=== PATIENT | female | born 1995 | race Caucasian/White ===

== ENCOUNTER 2024-10-31 08:54 | Outpatient (CLI) | payer MEDICAID, SELFPAY ==
[2024-10-31 09:19] VITALS: PULSE 93; O2SAT 97
[2024-10-31 09:20] VITALS: BP 107/52; PULSE 83
[2024-10-31 09:28] VITALS: RESP 16; TEMP 37.8
[2024-10-31] MEDS: METOCLOPRAMIDE 10 MG TABLET PO (09:56)
[2024-10-31] MEDS: ACETAMINOPHEN 500 MG TABLET 1000 MG PO (09:56)
[2024-10-31 09:59] LABS: Hematocrit 31.9 % (33.0-51.0); Hemoglobin* 10.7 gm/dL (12.0-16.0); Mean Corpuscular HGB Conc 34 gm/dL (32-36); Mean Corpuscular Hemoglobin 31 pg (26-34); Mean Corpuscular Volume 92 fL (80-100); Red Blood Count 3.47 m/uL (4.00-5.20); White Blood Count* 8.40 K/uL (4.50-11.00)
[2024-10-31 10:02] LABS: Slide Review Reflex No
[2024-10-31 10:16] LABS: Alanine Aminotransferase* 23 U/L (4-35); Aspartate Amino Transferase* 28 U/L (12-35); Creatinine* 0.5 mg/dL (0.5-1.5); Estimated Glomerular Filt Rate 131 ml/min
[2024-10-31 11:12] VITALS: RESP 16; TEMP 36.7
[2024-10-31 12:04] VITALS: BP 107/51; PULSE 74
[2024-10-31 12:05] VITALS: PULSE 80; O2SAT 98
--- NOTE | 2024-10-31 12:44 | PC.OBNST ---
NST Note NST Note Start: 10/31/24 09:14 Freq: ONCE Status: Active Protocol: Document 10/31/24 09:14 BRM (Rec: 10/31/24 12:43 BR [id number]) NST Note 3 Para (# of births) 2 EDC 01/18/25 Gestational Age In 28 Weeks & 5 Days Weeks & Days Patient Presented Headache with Complaint(s) of Other Complaints Complaints of fever and headache Reactive Yes Appropriate for Yes Gestational Age BRIANA Whitfield RNC Date 10/31/24 Reactive Yes Appropriate for Yes Gestational Age BRIANA Summers RN Date 10/31/24 OB NST charge Yes Complete NST Note Yes via Write Note The provider's electronic signature indicates the NST is reactive/appropriate for gestational age. *Note to provider: If an addendum is required, open the patient's chart and click on the note under the Nurse/Allied Health tab.
== END 2024-10-31 12:05 | disposition home or self-care (01) ==
LOC: OB OUT 08:54 → OB 08:55
PROVIDERS: Family Medicine; PCP Family Medicine; Visit Provider Family Medicine
DX: O26.893 Other specified pregnancy related conditions, third trimester (principal); R51.9 Headache, unspecified; R50.9 Fever, unspecified; Z3A.28 28 weeks gestation of pregnancy
CPT/HCPCS: 36415; 59025; 82565; 84450; 84460; 85027; G0463; A9270

== ENCOUNTER 2025-01-14 15:59 | Inpatient (IN) | payer BC, SELFPAY ==
[2025-01-14] VITALS (8 sets, daily range): BP systolic 123–151; BP diastolic 72–80; PULSE 78–92; RESP 16; TEMP 36.6–36.7; O2SAT 98–99; BMI 32.5
[2025-01-14 17:28] LABS: Hematocrit* 32.7 % (33.0-51.0); Hemoglobin* 10.6 gm/dL (12.0-16.0); Immature Granulocytes Abs Auto 0.10 K/uL (0.00-0.30); Immature Granulocytes Pct Auto 0.9 %; Mean Corpuscular HGB Conc 32 gm/dL (32-36); Mean Corpuscular Hemoglobin 29 pg (26-34); Mean Corpuscular Volume 88 fL (80-100); RDW Coefficient of Variation % 13.5 % (11.5-15.5); Red Blood Count* 3.72 m/uL (4.00-5.20); White Blood Count* 10.83 K/uL (4.50-11.00)
--- NOTE | 2025-01-14 17:32 | PM.OBHPLI ---
OB - H&P: HPI Labor/Induction History of Present Illness Time Seen by Provider: 17:32 Date Seen: 01/14/25 Chief Complaint: The patient is a 29 year old 3 para 1001 at 39.3 weeks gestation by first trimester ultrasound (conceived immediately after removal of IUD), who presents for IOL. Chief complaint: IOL- HX of shoulder dystocia : 3 Para: 2 Narrative: Michelle Marie is a 29 year old female 3 para 2001 at 39.3 weeks gestation by first trimester ultrasound (conceived immediately after removal of IUD), who presents for IOL. Patient has history of 90 second shoulder dystocia with her first baby when induced at 41 weeks. She did well without dystocia in her 2nd when induced at 39 weeks and requests IOL for history of dystocia. Of note, this baby is measuring 36th percentile, abdominal circumference 50th percentile. Of note, this is a new FOB compared to other children. She has had epidural for pain management with other children. She contracted some over the weekend, otherwise feels well. Patient has history of anxiety, uses hydroxyzine PRN. had anemia in , on oral iron. Hemoglobin is 11.4. NIPT low risk, Girl History of Present Dating criteria: based on 1st trimester US only care: good care Ultrasounds: normal 1st trimester US and normal mid trimester US Medical complications: none Labs Blood type: A (+) positive Rubella: immune RPR/VDLR: nonreactive GBS status: negative HBsAG: negative Review of Systems Status of ROS: Reports: 10 or more systems reviewed and unremarkable except as noted in History and below Meds Home Medications and Allergies Home Medications ?Medication ?Instructions ?Recorded ?Confirmed ?Type hydroxyzine HCl 10 mg tablet 10 - 20 mg PO Q8H PRN anxiety 10/31/24 01/14/25 History Held on 01/14/25. Instructions: patient ran out vit no.95-ferrous 1 tab PO DAILY 10/31/24 01/14/25 History fumarate 28 mg-folic acid 800 mcg tablet () ferrous sulfate 325 mg (65 mg 325 mg PO DAILY 01/14/25 01/14/25 History iron) tablet (iron) Allergies Allergy/AdvReac Type Severity Reaction Status Date / Time No Known Drug Allergies Allergy Verified 01/14/25 16:34 OB - H&P: Exam Physical Exam: Vital signs: Pulse BP Pulse Ox 85 123/72 98 01/14/25 16:58 01/14/25 16:58 01/14/25 17:01 Constitutional: Constitutional: no acute distress Routine HEENT Exam: Head: Present atraumatic and normal inspection Routine Neck Exam: Neck: Present full ROM Detailed Neck Exam: Thyroids: Thyroid: Present normal Routine Respiratory Exam: Respiratory: Present CTA bilaterally Routine Cardiovascular Exam: Cardiovascular: RRR, S1 and S2 Detailed Labor and Delivery Exam: Patient Gravid: yes Dilation (cm): 1 Effacement (%): 50 Cervix position: posterior Consistency: medium Fetus (Single): Station: -2 Amniotic Membrane Status: intact Heart Rate Baseline: 125 Monitor Accelerations: Present Monitor Decelerations: None Rayon Tester Variability: Moderate (6-25) Routine Back/Spine/Pelvis Exam: Back/Spine: full ROM Routine Skin Exam: Present intact Routine Neurological Exam: Present alert and oriented X3 OB - Problem Based A/P Additional Plan (1) Term : Problem details: Patient is 39w3d by early ultrasound, conceived after removal of IUD. Status: Acute (2) History of shoulder dystocia in prior : Problem details: history of 90 second shoulder with first (induced at 41 weeks). Did well without shoulder dystocia at 39 week IOL with 2nd. Growth 36%ile, 50% abdominal circumference. Different FOB. Status: Acute Plan: - IOL today as planned. Plan - cook catheter placed with 60 and 60 cc in uterine and vaginal balloons - patient tolerated procedure well - low dose pitocin at midnight - labor analgesia prn, discussed options. - had 1 elevated BP upon admission, will monitor closely. Delivery/Labor/Induction Plan Plan: induction Induction method: Intracervical balloon catheter
[2025-01-14 17:37] LABS: Lymphocytes Absolute Auto 1.50 K/uL (0.90-2.90)
[2025-01-14 17:38] LABS: Slide Review Reflex No
[2025-01-15] VITALS (36 sets, daily range): BP systolic 114–141; BP diastolic 59–85; PULSE 60–105; RESP 16–18; TEMP 36.6–36.8; O2SAT 92–100
[2025-01-15] MEDS: OXYTOCIN 30 unit/500 ML in NS 30 UNIT/500 ML BAG IVPB (00:12)
[2025-01-15] MEDS: LACTATED RINGERS 1000 ML 1,000 ML 125 ML IV (00:12)
--- NOTE | 2025-01-15 06:58 | PM.OBPNL ---
Subjective Time Seen by Provider: 06:58 Date Seen: 01/15/25 Narrative: Slept some off and on, contractions more uncomfortable now Objective Exam: resting comfortably between contractions Vital Signs: Last Vital Signs Temp 97.9 F 01/15/25 05:48 Pulse 77 01/15/25 05:48 Resp 16 01/15/25 05:48 BP 117/59 L 01/15/25 05:48 Pulse Ox 98 01/14/25 17:01 Pelvic Exam Dilation (cm): 4 Effacement (%): 70 Station: -2 Comments: posterior, soft Contractions Monitor mode: External Contraction Frequency: 3-4 Contraction pattern: Regular Contraction intensity: Strong/Firm Pitocin Rate (mU/min): 7 Assessment Assessment: induction ongoing Station: -2 Amniotic Membrane Status: AROM (AROM now with small amount of clear fluid, some bloody show) Status: Category l Heart Rate Baseline: 125 Penitentiary Variability: Moderate (6-25) Monitor Accelerations: Present Monitor Decelerations: None Plan Plan: - AROM now with clear fluid - titrate pitocin as needed - anticipate - epidural if desired.
[2025-01-15] MEDS: LACTATED RINGERS 1000 ML 1,000 ML 1125 ML IV (07:30)
[2025-01-15] MEDS: LIDOCAINE 2% (PF) 5 ML VIAL EPIDURAL (07:55)
[2025-01-15] MEDS: ROPIVACAINE 0.2% 100 ml 100 ML 10 MG EPIDURAL (07:55)
--- NOTE | 2025-01-15 08:01 | PM.ANBPRC ---
PFSH PFSH Social History What is your current living situation?: I presently have a place to live Problems where you live: no known problems In the past 12 months, utilities in danger of being shut off: no In past 12 months, lack of transportation kept you from medical appts, meetings, work, or getting things needed for daily living: no In the past 12 mos, have been you worried that your food would run out before you had money to buy more?: never true In the past 12 mos, the food you bought just didn't last and you didn't have money to buy more?: never true Smoking Status: Former smoker How often does anyone, including family, friends and others, physically hurt you: never How often does anyone, including family, friends and others, insult or talk down to you: never How often does anyone, including family, friends and others, threaten you with harm: never How often does anyone, including family, friends and others, scream or curse at you: never Meds Home Medications and Allergies Home Medications ?Medication ?Instructions ?Recorded ?Confirmed ?Type hydroxyzine HCl 10 mg tablet 10 - 20 mg PO Q8H PRN anxiety 10/31/24 01/14/25 History Held on 01/14/25. Instructions: patient ran out vit no.95-ferrous 1 tab PO DAILY 10/31/24 01/14/25 History fumarate 28 mg-folic acid 800 mcg tablet () ferrous sulfate 325 mg (65 mg 325 mg PO DAILY 01/14/25 01/14/25 History iron) tablet (iron) Allergies Allergy/AdvReac Type Severity Reaction Status Date / Time No Known Drug Allergies Allergy Verified 01/14/25 16:34 Results Labs Labs: Laboratory Results - last 24 hr 01/14/25 17:13 WBC 10.83 RBC 3.72 L Hgb 10.6 L Hct 32.7 L MCV 88 MCH 29 MCHC 32 RDW Coeff of Kiley 13.5 Plt Count 219 Neut % (Auto) 76.2 H Lymph % (Auto) 13.7 L [place] % (Auto) 8.3 Eos % (Auto) 0.6 Baso % (Auto) 0.3 Neut # (Auto) 8.30 H Lymph # (Auto) 1.50 [place] # (Auto) 0.90 Eos # (Auto) 0.06 Baso # (Auto) 0.03 Abs Immat Gran (auto) 0.10 Imm/Tot Granulo (auto) 0.9 Vital Signs Vital Signs: Last Vital Signs Temp 97.8 F 01/15/25 07:45 Pulse 63 01/15/25 07:59 Resp 16 01/15/25 05:48 BP 130/75 01/15/25 07:59 Pulse Ox 100 01/15/25 07:57 Weight: 78.018 kg Height: 154.94 cm Anesthesia Procedures Epidural Insertion Patient Location: OB Start Time: 07:45 Stop Time: 08:15 Start Date: 01/15/25 Stop Date: 01/15/25 Reason for Block: primary anesthetic Patient Position: sitting Performed By: James Marr Preanesthetic Checklist: IV checked, risks and benefits discussed, surgical consent, monitors and equipment checked, pre-op evaluation, timeout performed and anesthesia consent Prep: chlorhexidine gluconate Monitoring: blood pressure monitoring, secured entrance monitor, continuous pulse oximetry and heart rate Approach: midline Vertebral Space: lumbar (1-5) Needle Type: Tuohy needle Injection Technique: continuous catheter (catheter) Needle gauge: 17 Needle Length (cm): 10 cm Needle Insertion Depth (cm): 5 Catheter Gauge: 19 Catheter Type: multi-orifice Catheter at skin depth (cm): 10 Test Dose Result: negative and lidocaine 1.5% with epinephrine 1 to 200,000
--- NOTE | 2025-01-15 09:01 | W.PM.OBVAGDE ---
OB Procedure Vag Delivery Mother Details Mother Details: The patient is a 29 year-old, 3, Para 2, admitted on 01/14/25 at 39.4 Days gestation. : 3 Para: 3 Weeks Gestation: 39.4 Admission Date: 01/14/25 Additional Details Amniotic Membrane Status: AROM Amniotic Membrane Rupture Date: 01/15/25 Amniotic Membrane Rupture Time: 06:51 Amniotic Membrane Fluid Description: Clear Analgesia/Anesthesia Type: Epidural Waterbirth: No Pitcoin: Yes (AMTSL) Intrapartal Events: Precipitous Labor <3 Hrs Induction Method: Intracervical balloon catheter and per pitocin protocol (low dose) Delivery augmentation: rupture of membranes Labor Onset: 07:00 Complete: 08:34 Pushin:44 Heart: heart tones during second stage were category 2. They were difficult to trace given rapid descent and short duration of second stage. Variables noted with some contractions. Delivery Details Delivery Date: 01/15/25 Delivery Time: 08:47 Route of delivery: Gender: Female Viability: Alive; Heart Rate Present Position at Delivery: OA Delivery Details: Patient was admitted for elective IOL with a history of a should dystocia and progressed with a Cook catheter with low dose Pitocin followed by AROM augmentation. AROM noted at 0651 with clear fluid. Patient quickly progressed to complete and Dr. Murray was called. She began spontaneously pushing well before her arrival so I was called to L&D as I was in the building and available. She was noted coplete at 0834 and was spontaneously pushing at 0844. Immediately after my arrival a large crown was noted. of a viable female at 0847 in left tilt. Vertex delivered OA. No nuchal cord or shoulder. Body delivered easily and without incident. Infant passed to mothers abdomen with a vigorous cry. Cord was clamped and cut at ~ 3 minutes due to increased bleeding. APGARS were 8 at one minute and 8 at five minutes respectively. Mouth was bulb suctioned. Intact placenta with a 3 vessel cord delivered spontaneously at 0853. Fundus firm. Intact perineum identified and confirmed with Dr. Murray who had arrived in the room after delivery of the placenta. QBL 275 cc. Mother and baby stable; mother plans to breastfeed. weight pending. 1 Minute Interval Total Score: 8 5 Minute Interval Total Score: 8 Additional Details Shoulder Dystocia: No Placenta Delivery Time: 08:53 Placental Delivery Description: Spontaneous Procedure Done: Global Blood Loss: 275 Laceration: None Episiotomy Description: None Blood Loss Measurement Type: QBL Bakri Used: No Sponge/Need Count Correct: Yes Cord Vessel Description: 3 Vessels Event Summary Status: Mother and were stable after delivery. Disposition: floor
--- NOTE | 2025-01-15 09:13 | PM.OBPNL ---
Subjective Time Seen by Provider: 09:13 Date Seen: 01/15/25 Narrative: Patient felt urge to push, Nursing SVE was 8-9 cm. Objective Vital Signs: Last Vital Signs Temp 97.8 F 01/15/25 07:45 Pulse 69 01/15/25 09:08 Resp 16 01/15/25 05:48 BP 128/72 01/15/25 09:08 Pulse Ox 92 01/15/25 08:32 Contractions Monitor mode: External Contraction pattern: Regular Contraction intensity: Strong/Firm Pitocin Rate (mU/min): 7 Assessment Assessment: active labor Amniotic Membrane Status: AROM (AROM now with small amount of clear fluid, some bloody show) Heart Rate Baseline: 125 Plan Plan: I was called to bedside, but while I was driving from clinic forge shop machine repairer Samantha Borrero delivered patient and placenta. I examined perineum, no laceration or repair required. Please see Samantha's note for details.
[2025-01-15 09:23] LABS: Hematocrit* 32.0 % (33.0-51.0); Hemoglobin* 10.1 gm/dL (12.0-16.0); Mean Corpuscular HGB Conc 32 gm/dL (32-36); Mean Corpuscular Hemoglobin 29 pg (26-34); Mean Corpuscular Volume 90 fL (80-100); Red Blood Count* 3.55 m/uL (4.00-5.20); White Blood Count* 12.17 K/uL (4.50-11.00)
[2025-01-15 09:25] LABS: Slide Review Reflex No
--- NOTE | 2025-01-15 09:27 | PM.OBPNVD1 ---
OB - PN:Subj Subjective Time Seen by Provider: 09:28 Date Seen: 01/15/25 Patient comments OB post-: no complaints status: bottle and OB - PN: Obj Exam Physical Exam: Vital signs: Temp Pulse Resp BP Pulse Ox 97.8 F 67 16 123/79 92 01/15/25 07:45 01/15/25 09:23 01/15/25 05:48 01/15/25 09:23 01/15/25 08:32 Constitutional: Constitutional: no acute distress Routine HEENT Exam: Head: Present atraumatic Routine Respiratory Exam: Respiratory: Present CTA bilaterally Routine Cardiovascular Exam: Cardiovascular: Present RRR, S1 and S2 Routine Abdominal Exam: Fundus: Present firm Routine Extremities Exam: Extremities: Present full ROM; Absent calf tenderness Routine Back/Spine/Pelvis Exam: Back/Spine: Present full ROM Routine Neurological Exam: Neurological: Present alert and oriented X3 Routine Psychiatric Exam: Psychiatric: Present normal affect OB - PN: Obj Data Labs Labs: Laboratory Results - last 24 hr 01/14/25 01/15/25 17:13 09:16 WBC 10.83 12.17 H RBC 3.72 L 3.55 L Hgb 10.6 L 10.1 L Hct 32.7 L 32.0 L MCV 88 90 MCH 29 29 MCHC 32 32 RDW Coeff of Kiley 13.5 Plt Count 219 199 Neut % (Auto) 76.2 H Lymph % (Auto) 13.7 L [place] % (Auto) 8.3 Eos % (Auto) 0.6 Baso % (Auto) 0.3 Neut # (Auto) 8.30 H Lymph # (Auto) 1.50 [place] # (Auto) 0.90 Eos # (Auto) 0.06 Baso # (Auto) 0.03 Abs Immat Gran (auto) 0.10 Imm/Tot Granulo (auto) 0.9 OB - PN: A/P Delivery Assessment and Plan (1) Term : Problem details: Patient is 39w3d by early ultrasound, conceived after removal of IUD. Status: Acute (2) History of shoulder dystocia in prior : Problem details: history of 90 second shoulder with first (induced at 41 weeks). Did well without shoulder dystocia at 39 week IOL with 2nd. Growth 36%ile, 50% abdominal circumference. Different FOB. Status: Acute (3) Gestational hypertension: Problem details: BP on admission (151 systolic). BP elevated at 141 during epidural placement. Status: Acute Assessment and Plan: - will draw preeclampsia labs - no symptoms, will continue preeclampsia assessments. (4) Precipitous delivery, delivered (current hospitalization): Status: Acute Plan day: 0 Plan: routine care Comments: -Labs today for preeclampsia - monitor blood pressure closely
[2025-01-15 09:39] LABS: Alanine Aminotransferase* 14 U/L (4-35); Aspartate Amino Transferase* 20 U/L (12-35); Blood Urea Nitrogen* 15 mg/dL (5-24); Creatinine* 0.5 mg/dL (0.5-1.5); Est. Creatinine Clearance* 125.28; Estimated Glomerular Filt Rate 130 ml/min
[2025-01-15] MEDS: IBUPROFEN 600 MG TABLET PO (21:40)
[2025-01-16 02:20] VITALS: BP 119/75; PULSE 70; RESP 16; TEMP 36.6; O2SAT 98
[2025-01-16] MEDS: ACETAMINOPHEN 500 MG TABLET 1000 MG PO (02:34)
[2025-01-16 05:43] VITALS: BP 112/66; PULSE 64; RESP 16; TEMP 36.6; O2SAT 97
[2025-01-16 06:24] LABS: Hemoglobin* 9.4 gm/dL (12.0-16.0)
--- NOTE | 2025-01-16 07:34 | PM.OBDSVD1 ---
DS: Providers Provider Date Seen: 01/16/25 Date of admission: 01/14/25 15:59 Primary care physician: Jammie Murray MD Admitting Clinician: Jammie Murray MD Attending Physician on discharge: Jammie Murray MD DS: Diagnosis Discharge Diagnosis (1) Precipitous delivery, delivered (current hospitalization): Status: Acute Problem details: induced at 39.3 due to h/o shoulder dystocia. IOL with cook, pit, arom and epidural. Delivered at 39w4d via precipitous delivery. (2) Gestational hypertension: Status: Acute Problem details: BP on admission (151 systolic). BP elevated at 141 during epidural placement. Labs within normal limits (3) anemia: Status: Acute Problem details: Hemoglobin 9.4 on day of discharge. Recommend daily iron supplementation Exam Narrative: Exam Narrative: Gen: No acute distress Ext: Warm, dry, 2+ pedal pulses, 1+ edema bilaterally. Calves non-tender to palpation. Const: Vital Signs, click to edit/add: Vital Signs - 24 hr 01/15/25 07:41 01/15/25 07:45 01/15/25 07:45 Temperature 97.8 F Pulse Rate 82 Pulse Rate [Pulse Oximeter] Respiratory Rate Blood Pressure 137/72 Blood Pressure [Le ft Arm] Pulse Oximetry 99 Oxygen Delivery Me thod 01/15/25 07:46 01/15/25 07:47 01/15/25 07:51 Temperature Pulse Rate 72 67 Pulse Rate [Pulse Oximeter] Respiratory Rate Blood Pressure 134/76 141/79 H Blood Pressure [Le ft Arm] Pulse Oximetry 100 100 Oxygen Delivery Me thod 01/15/25 07:54 01/15/25 07:57 01/15/25 07:59 Temperature Pulse Rate 78 75 63 Pulse Rate [Pulse Oximeter] Respiratory Rate Blood Pressure 127/74 130/74 130/75 Blood Pressure [Le ft Arm] Pulse Oximetry 100 Oxygen Delivery Me thod 01/15/25 08:02 01/15/25 08:07 01/15/25 08:09 Temperature Pulse Rate 74 79 Pulse Rate [Pulse Oximeter] Respiratory Rate Blood Pressure 126/62 124/77 Blood Pressure [Le ft Arm] Pulse Oximetry 100 100 Oxygen Delivery Me thod 01/15/25 08:12 01/15/25 08:13 01/15/25 08:17 Temperature Pulse Rate 62 Pulse Rate [Pulse Oximeter] Respiratory Rate Blood Pressure 130/73 Blood Pressure [Le ft Arm] Pulse Oximetry 100 100 Oxygen Delivery Me thod 01/15/25 08:19 01/15/25 08:22 01/15/25 08:27 Temperature Pulse Rate 71 Pulse Rate [Pulse Oximeter] Respiratory Rate Blood Pressure 125/70 Blood Pressure [Le ft Arm] Pulse Oximetry 100 100 Oxygen Delivery Me thod 01/15/25 08:28 01/15/25 08:32 01/15/25 08:38 Temperature Pulse Rate 105 H Pulse Rate [Pulse Oximeter] Respiratory Rate Blood Pressure 119/72 Blood Pressure [Le ft Arm] Pulse Oximetry 93 92 Oxygen Delivery Me thod 01/15/25 09:06 01/15/25 09:08 01/15/25 09:23 Temperature Pulse Rate 68 69 67 Pulse Rate [Pulse Oximeter] Respiratory Rate Blood Pressure 121/65 128/72 123/79 Blood Pressure [Le ft Arm] Pulse Oximetry Oxygen Delivery Me thod 01/15/25 09:38 01/15/25 09:53 01/15/25 10:08 Temperature Pulse Rate 76 80 72 Pulse Rate [Pulse Oximeter] Respiratory Rate Blood Pressure 126/85 124/85 125/78 Blood Pressure [Le ft Arm] Pulse Oximetry Oxygen Delivery Me thod 01/15/25 10:23 01/15/25 10:38 01/15/25 10:53 Temperature Pulse Rate 72 83 74 Pulse Rate [Pulse Oximeter] Respiratory Rate Blood Pressure 118/66 120/79 119/71 Blood Pressure [Le ft Arm] Pulse Oximetry Oxygen Delivery Me thod 01/15/25 12:35 01/15/25 16:30 01/15/25 21:25 Temperature 98.2 F 97.9 F 97.9 F Pulse Rate Pulse Rate [Pulse Oximeter] 83 81 74 Respiratory Rate 18 16 16 Blood Pressure Blood Pressure [Le ft Arm] 130/81 121/82 124/70 Pulse Oximetry 99 99 98 Oxygen Delivery Me thod Room Air Room Air Room Air 01/16/25 02:20 01/16/25 05:43 Temperature 97.8 F 97.9 F Pulse Rate Pulse Rate [Pulse Oximeter] 70 64 Respiratory Rate 16 16 Blood Pressure Blood Pressure [Le ft Arm] 119/75 112/66 Pulse Oximetry 98 97 Oxygen Delivery Me thod Room Air Room Air OB - DS: Summary Hospital Course Hospital Course: The patient is a 29 year old G 3 P 3 at 39.4 weeks gestation that was admitted to the Center on 01/14/25 for IOL for history of shoulder dystocia. She had a precipitous vaginal delivery. She delivered a viable female . She is breast/bottle formula feeding. the patient has done well. She had elevated blood pressures intrapartum (140-150) diagnosed with gestation hypertension. Blood pressures have been normal, did not require medication and labs are all normal. Infant Gender: Female Status at Discharge Functional status at discharge: independent ambulation Overall status at discharge: patient is progressing back to baseline Time Spent with Patient Time attestation: Total time spent providing and/or coordinating discharge services: Discharge Plan Discharge Disposition: Home, Self-Care Date of Admission: 01/14/25 15:59 Primary Care Provider: Jammie Murray Condition: Stable Anticipated Discharge Date/Time: 01/16/25 10:00 Discharge Medications: Continued hydroxyzine HCl 10 mg tablet 10 - 20 mg PO Q8H PRN (Reason: anxiety) PNV no.95-ferrous fumarate-FA [] 28 mg iron- 800 mcg tablet 1 tab PO DAILY ferrous sulfate [iron] 325 mg (65 mg iron) tablet 325 mg PO DAILY Discharge Orders: Discharge Order (Routine); Ordered 01/16/25 Ordered By: Johanna Gambino Consulting provider completed their portion of the discharge: Yes Patient Education: OB High Blood Pressure DC, OB Over the Counter Medication Information, OB Vaginal/Bottle Feeding, OB Vaginal/Breast Feeding Activity Level: Activity as Tolerated Activity Detail: Dr Murray will see you both at 1:10 on 01/17 for weight and blood pressure check. Discharge Diet: Regular Follow Up Appointments: Jammie Murray MD [Primary Care Provider, Family Practice] Forms: [employer] Info Instructions DS:Data Additional Comments Additional comments: - Pelvic rest for 6 weeks (no intercourse, tampons or douching), or until one week after vaginal bleeding stops. - Daily activities for the first week should be limited to taking care of patient and her baby, and only as tolerated. - Call MD if fever > 100.4 degrees, bleeding more than 1 pad / hour, foul-smelling discharge, passage of golf-ball sized blood clots, or worsening of pain not controlled by medications. - Counseled on signs of post- depression
[2025-01-16] MEDS: FERROUS SULFATE 325 MG TABLET PO (08:12)
[2025-01-16] MEDS: DOCUSATE SODIUM 100 MG CAPSULE PO (08:12)
[2025-01-16 08:34] VITALS: BP 122/82; PULSE 78; RESP 16; O2SAT 99
--- NOTE | 2025-01-16 11:55 | PM.ANPOST ---
Post Anesthesia Note Post Anesthesia Note Patient seen: Inpatient Respiratory Status: adequate Cardiovascular Status: adequate Mental Status: baseline Pain: adequate Temp: baseline Anesthetic awareness: N/A Complications: none Follow care: none
== END 2025-01-16 12:18 | disposition home or self-care (01) | DRG 560 ==
PROVIDERS: Admitting Provider Family Medicine; PCP Family Medicine; Visit Provider Family Medicine
DX: O13.4 Gestational [pregnancy-induced] hypertension without significant proteinuria, complicating childbirth (principal); O62.3 Precipitate labor; O99.02 Anemia complicating childbirth; D64.9 Anemia, unspecified; O99.344 Other mental disorders complicating childbirth; F41.9 Anxiety disorder, unspecified; Z3A.39 39 weeks gestation of pregnancy; Z37.0 Single live birth
CPT/HCPCS: 01967; 36415; 59200; 76815; 82565; 84450; 84460; 84520; 85018; 85025; 85027; 86592; A9270; C1726; J2795; J7120